=== PATIENT | male | born 1965 | race Caucasian/White ===

== ENCOUNTER → 2017-05-08 | Outpatient (CLI) | payer BC ==
[2017-05-08 21:02] LABS: Basophils # (A) 0.1 k/uL (0-0.2); Basophils % (A) 1 %; CH 29.8; CHCM 32.4; Eosinophils # (A) 0.1 k/uL (0-0.7); Eosinophils % (A) 2 %; HCT 45.7 % (39.0-53.0); HDW 2.19; HGB 14.7 gm/dL (13.0-17.5); Luc # (Auto) 0.21; Luc % (Auto) 3; Lymphocytes # (A) 2.7 k/uL (1.0-4.8); Lymphocytes % (A) 34 %; MCH 29.8 pg (25.0-35.0); MCHC 32.2 g/dL (31.0-37.0); MCV 92.6 fL (80.0-100.0); Mean Platelet Volume 8.1; Monocytes # (A) 0.5 k/uL (0-1.0); Monocytes % (A) 6 %; Neutrophils # (A) 4.3 k/uL (1.3-7.7); Neutrophils % (A) 54 %; RBC 4.93 m/uL (4.30-5.90); RDW 12.7 % (11.5-15.5); WBC 7.8 k/uL (3.8-10.6); WBC (Perox) 7.82
[2017-05-08 21:20] LABS: ALT 205 U/L (21-72); AST 92 U/L (17-59); Alkaline Phosphatase 80 U/L (38-126); Anion Gap 13 mmol/L; Blood Urea Nitrogen 12 mg/dL (9-20); Calcium 10.3 mg/dL (8.4-10.2); Carbon Dioxide 26 mmol/L (22-30); Chloride 100 mmol/L (98-107); Cholesterol 224 mg/dL (<200); Glucose 99 mg/dL (74-99); HDL Cholesterol 88 mg/dL (40-60); Non-African American GFR(MDRD) >60 (>60 ml/min/1.73 sqM); Potassium 5.2 mmol/L (3.5-5.1); Sodium 139 mmol/L (137-145); Total Bilirubin 1.2 mg/dL (0.2-1.3); Total Protein 8.1 g/dL (6.3-8.2); Uric Acid 10.1 mg/dL (3.5-8.5)
== END | disposition home or self-care (01) ==
LOC: MMGSC 16:42
PROVIDERS: ATTEND Family Medicine
DX: Z00.00 Encounter for general adult medical examination without abnormal findings (principal); M10.9 Gout, unspecified; Z12.5 Encounter for screening for malignant neoplasm of prostate
CPT/HCPCS: 84439; 80053; 80061; 84443; 84550; 85025; 36415; G0103

== ENCOUNTER 2020-09-06 08:34 | Day surgery (SDC) | payer BC ==
[2020-09-03 15:55] VITALS: BMI 28.7
--- NOTE | 2020-09-06 07:56 | P.GSHP ---
History of Present Illness H&P Date: 09/06/20 CHIEF COMPLAINT: Colon screen HISTORY OF PRESENT ILLNESS: The patient is a 55-year-old male who presents for colon screen. Lower endoscopy was offered for further evaluation and management. PAST MEDICAL HISTORY: Please see list. PAST SURGICAL HISTORY: Please see list. MEDICATIONS: Please see list. ALLERGIES: Please see list. SOCIAL HISTORY: No illicit drug use FAMILY HISTORY: No reports of Crohn disease or ulcerative colitis. REVIEW OF ORGAN SYSTEMS: CONSTITUTIONAL: No reports of fevers or chills. PHYSICAL EXAM: VITAL SIGNS: Stable GENERAL: Well-developed pleasant in no acute distress. HEENT: No scleral icterus. Extraocular movements grossly intact. Moist buccal mucosa. NECK: Supple without lymphadenopathy. CHEST: Unlabored respirations. Equal bilateral excursions. CARDIOVASCULAR: Regular rate and rhythm. Distal 2+ pulses. ABDOMEN: Soft, nontender, nondistended. MUSCULOSKELETAL: No clubbing, cyanosis, or edema. ASSESSMENT: 1. Colon screen. PLAN: 1. Recommend proceeding with a lower endoscopy Past Medical History Past Medical History: Hypertension Additional Past Medical History / Comment(s): gout History of Any Multi-Drug Resistant Organisms: None Reported Past Surgical History: Appendectomy, Hernia Repair Past Anesthesia/Blood Transfusion Reactions: No Reported Reaction Smoking Status: Former smoker - Past Family History Mother Family Medical History: No Reported History Medications and Allergies Home Medications Medication Instructions Recorded Confirmed Type Allopurinol [Zyloprim] 100 mg PO QAM 09/03/20 09/03/20 History Terazosin [Hytrin] 1 mg PO HS 09/03/20 09/03/20 History Zolpidem [Ambien] 5 - 10 mg PO HS PRN 09/03/20 09/03/20 History Allergies Allergy/AdvReac Type Severity Reaction Status Date / Time No Known Allergies Allergy Verified 09/03/20 15:50
[~2020-09-06 08:34] MED LIST: LACTATED RINGERS 1,000 ML IV SCH
[2020-09-06 09:05] VITALS: TEMP 97.5
[2020-09-06] MEDS ORDERED: LIDOCAINE 1% (10MG/ML) FOR IV START INTRADERMA ONE (09:09)
[2020-09-06] MEDS ORDERED: PROPOFOL 10 MG/ML 20 ML VIAL IV ONE (09:54)
--- NOTE | 2020-09-06 10:16 | P.PCN ---
Date of Procedure: 09/06/20 Description of Procedure: PREOPERATIVE DIAGNOSIS: Colonoscopy screening. POSTOPERATIVE DIAGNOSIS: Colonoscopy screening. Diverticulosis, scattered. OPERATION: Colonoscopy to the cecum, ileocecal valve and appendiceal orifice. SURGEON: Shawanda Alfredo MD. ANESTHESIA: MAC. INDICATIONS: The patient is a 55-year-old male who presents for colonoscopy screening. Benefits and risks were described and informed consent was obtained. DESCRIPTION OF PROCEDURE: The patient had undergone Suprep tabs. The patient had been brought into the operating room and laid in the left lateral decubitus position. After adequate intravenous sedation, the rectum was examined with 2% lidocaine jelly. The prostate was unremarkable. No external hemorrhoids were encountered. The rectal tone was within normal limits. No lesions were palpated in the rectal vault. An Olympus colonoscope was advanced until the cecum, ileocecal valve and appendiceal orifice were clearly viewed. The prep was excellent. Scattered diverticulosis was encountered. No colonic polyps were found. No evidence of focal colitis was found. Retroflexion of the scope demonstrated grade 1 internal hemorrhoids without active bleeding or inflammation. The colon was desufflated. The patient had tolerated the procedure well. Withdrawal time was over 6 minutes. FINDINGS: Aronchick preparation quality scale 1 (1-5) Internal hemorrhoids, grade 1 No external prolapsed hemorrhoids. No arteriovenous malformations. No adenomatous polyps. No focal colitis. RECOMMENDATIONS: Lower endoscopy in 5 years, 2025 Plan - Discharge Summary Discharge Rx Participant: No New Discharge Prescriptions: Continue Zolpidem [Ambien] 5 - 10 mg PO HS PRN PRN Reason: Insomnia Terazosin [Hytrin] 1 mg PO HS Allopurinol [Zyloprim] 100 mg PO QAM Discharge Medication List Allopurinol [Zyloprim] 100 mg PO QAM 09/03/20 [History] Terazosin [Hytrin] 1 mg PO HS 09/03/20 [History] Zolpidem [Ambien] 5 - 10 mg PO HS PRN 09/03/20 [History] Follow up Appointment(s)/Referral(s): Shawanda Alfredo MD [STAFF PHYSICIAN] - 09/11/20 Patient Instructions/Handouts: *[facility]gery [facility] - (Anesthesia) Endoscopy Discharge Instructions, Diverticulosis (DC), Diverticulosis Diet (GEN) Activity/Diet/Wound Care/Special Instructions: Repeat colonoscopy 5 years, 2025 Discharge Disposition: HOME SELF-CARE
[2020-09-06 10:39] VITALS: BP 163/86; PULSE 70; RESP 18
== END 2020-09-06 11:03 | disposition home or self-care (01) ==
LOC: ORWHC2ENDO 08:34
PROVIDERS: ATTEND Surgery Plastic and Reconstructive Surgery
DX: Z12.11 Encounter for screening for malignant neoplasm of colon (principal); K57.30 Diverticulosis of large intestine without perforation or abscess without bleeding; K64.0 First degree hemorrhoids; I10 Essential (primary) hypertension; M10.9 Gout, unspecified; Z87.891 Personal history of nicotine dependence; Z79.899 Other long term (current) drug therapy; Z98.890 Other specified postprocedural states
CPT/HCPCS: J2704; G0121

== ENCOUNTER 2020-10-12 11:33 | Day surgery (SDC) | payer BC ==
[2020-10-10 12:25] VITALS: BMI 29.4
--- NOTE | 2020-10-12 11:06 | P.GSHP ---
History of Present Illness H&P Date: 10/12/20 CHIEF COMPLAINT: Cholecystitis and GERD HISTORY OF PRESENT ILLNESS: The patient is a 55-year-old male who presents with history of epigastric including right upper quadrant abdominal pain. He underwent diagnostic studies for the gallbladder. Separately his clinical picture was consistent with cholecystitis. He also reports severe gastroesophageal reflux disease. Now he presents for surgical intervention. PAST MEDICAL HISTORY: Please see list and reviewed PAST SURGICAL HISTORY: Please see list and reviewed MEDICATIONS: Please see list and reviewed ALLERGIES: Please see list and reviewed SOCIAL HISTORY: Please see list and reviewed FAMILY HISTORY: Please see list and reviewed REVIEW OF ORGAN SYSTEMS: CONSTITUTIONAL: No fevers or chills. No recent weight loss. EYES: Denies any trouble with vision. No glasses. HEENT: No difficulties with hearing. No nosebleeds. No difficulty swallowing. RESPIRATORY: Denies pneumonia. Denies any troubles with breathing or dyspnea on exertion. CARDIOVASCULAR: Denies any chest pain, palpitations, or recent heart attacks. GASTROINTESTINAL: Denies fatty food intolerance. Denies change in bowel habits and gas bloat. Has gastroesophageal reflux disease. GENITOURINARY: Denies any blood in urine. Has increased urinary frequency with outflow obstruction. NEUROLOGICAL: Denies any numbness or tingling along the distal extremities. No seizure disorders or headaches. MUSCULOSKELETAL: Has back pain, stiffness or joint arthritis. Has gout. SKIN: No current skin cancer. No rash. PSYCHIATRIC: Denies current depression or suicidal thoughts. ENDOCRINE: Denies current thyroid disorders. Denies any blood sugar glucose intolerance. HEME/LYMPHATIC: Denies any lumps and bumps around the neck. No recent deep venous thrombosis. ALLERGY/IMMUNOLOGY: No immunoglobulin therapy. No immune deficiencies. BREAST: Denies current breast lumps, pain or nipple discharge. PHYSICAL EXAM: VITAL SIGNS: Afebrile vital signs stable GENERAL: Well-developed pleasant male in no acute distress. HEENT: No scleral icterus. Extraocular movements grossly intact. Moist buccal mucosa. NECK: Supple without lymphadenopathy. CHEST: Unlabored respirations. Equal bilateral excursions. CARDIOVASCULAR: Regular rate regular rhythm rhythm. Distal 2+ pulses. ABDOMEN: Soft, nondistended. Tender along the epigastrium and right upper quadrant. MUSCULOSKELETAL: No clubbing, cyanosis, or edema. NEURO : No focal or lateralizing signs. Cranial nerves II-12 within normal limits. PSYCH: Alert and oriented to person, place and time. SKIN: Well perfused. Good skin turgor. ASSESSMENT: 1. Epigastric and right upper quadrant abdominal pain 2. Chronic cholecystitis 3. Gastroesophageal reflux disease PLAN: 1. Will need a robotic cholecystectomy possible open. Benefits and risks were described. 2. Heparin for DVT prophylaxis 5000 units. 3. Antibiotic prophylaxis. 4. Recommend upper endoscopy for gastroesophageal reflux disease Past Medical History Past Medical History: Hypertension Additional Past Medical History / Comment(s): gout, abdominal pain History of Any Multi-Drug Resistant Organisms: None Reported Past Surgical History: Appendectomy, Hernia Repair Additional Past Surgical History / Comment(s): colonoscopy (09/06/20) Past Anesthesia/Blood Transfusion Reactions: No Reported Reaction Past Psychological History: No Psychological Hx Reported Smoking Status: Former smoker Past Alcohol Use History: Daily, Heavy Additional Past Alcohol Use History / Comment(s): quit smoking September 1994, smoked 1-1 1/2 ppd. Drinks approx 6 beers / daily. Past Drug Use History: None Reported - Past Family History Mother Family Medical History: Unable to Obtain Medications and Allergies Home Medications Medication Instructions Recorded Confirmed Type Allopurinol [Zyloprim] 100 mg PO QAM 09/03/20 10/10/20 History Terazosin [Hytrin] 1 mg PO HS 09/03/20 10/10/20 History Zolpidem [Ambien] 5 - 10 mg PO HS PRN 09/03/20 10/10/20 History Ascorbic Acid [Vitamin C] 1,000 mg PO DAILY 10/10/20 10/10/20 History Cholecalciferol (Vitamin D3) 250 mcg PO DAILY 10/10/20 10/10/20 History [Vitamin D3 (5000 Iu)] Multivit-Min/Folic/Vit K/Lycop 1 each PO DAILY 10/10/20 10/10/20 History [Men's Multivitamin Tablet] Zinc 100 mg PO Q48H 10/10/20 10/10/20 History Allergies Allergy/AdvReac Type Severity Reaction Status Date / Time No Known Allergies Allergy Verified 10/10/20 11:57
[~2020-10-12 11:33] MED LIST changes: +ACETAMINOPHEN TAB 500 MG TAB PO PRN; +DEXAMETHASONE SOD PHOSPHATE 4 MG/ML 1 ML VIAL IV ONE; +GABAPENTIN 300 MG CAP PO PRN; +HEPARIN SODIUM,PORCINE 5,000 UNIT/ML 1 ML VIAL SQ PRN; +INDOCYANINE GREEN 25 MG VIAL IV PRN; +MELOXICAM 7.5 MG TAB PO PRN; +MIDAZOLAM 2 MG/2 ML VIAL IV PRN; +ONDANSETRON 4 MG/2 ML VIAL IVP ONE; +SCOPOLAMINE 1.5MG/72HR PATCH TRANSDERM ONE; +TAMSULOSIN 0.4 MG CAP.ER.24H PO PRN
[2020-10-12] MEDS ORDERED: MIDAZOLAM 2 MG/2 ML VIAL IVP ONE (12:30)
[2020-10-12 13:14] LABS: Basophils # (A) 0.1 k/uL (0-0.2); Basophils % (A) 1 %; Eosinophils # (A) 0.1 k/uL (0-0.7); Eosinophils % (A) 1 %; HCT 42.3 % (39.0-53.0); HGB 14.6 gm/dL (13.0-17.5); Lymphocytes % (A) 22 %; MCH 32.2 pg (25.0-35.0); MCHC 34.6 g/dL (31.0-37.0); MCV 93.3 fL (80.0-100.0); Monocytes # (A) 0.6 k/uL (0-1.0); Monocytes % (A) 6 %; Neutrophils # (A) 6.2 k/uL (1.3-7.7); Neutrophils % (A) 70 %; Platelet Count 296 k/uL (150-450); RBC 4.53 m/uL (4.30-5.90)
[2020-10-12 13:19] LABS: ALT 158 U/L (4-49); AST 118 U/L (17-59); African American GFR (CKD) >90 (>60 ml/min/1.73 sqM); Albumin 5.1 g/dL (3.5-5.0); Alkaline Phosphatase 100 U/L (38-126); Anion Gap 10 mmol/L; Blood Urea Nitrogen 13 mg/dL (9-20); Calcium 10.3 mg/dL (8.4-10.2); Carbon Dioxide 27 mmol/L (22-30); Chloride 102 mmol/L (98-107); Glucose 104 mg/dL (74-99); Non-African American GFR(CKD) >90 (>60 ml/min/1.73 sqM); Potassium 4.1 mmol/L (3.5-5.1); Sodium 139 mmol/L (137-145); Total Bilirubin 1.6 mg/dL (0.2-1.3); Total Protein 8.3 g/dL (6.3-8.2)
[2020-10-12] MEDS ORDERED: NEOSTIGMINE 1 MG/ML 10 ML VIAL ONE (14:39)
[2020-10-12] MEDS ORDERED: fentaNYL (PF) 50 MCG/ML 2 ML AMP ONE (14:39)
[2020-10-12] MEDS ORDERED: KETOROLAC 15 MG/ML 1 ML VIAL ONE (14:39)
[2020-10-12] MEDS ORDERED: MIDAZOLAM 2 MG/2 ML VIAL ONE (14:39)
[2020-10-12] MEDS ORDERED: SUCCINYLCHOLINE CHLORIDE 100 MG/5 ML SYR IV ONE (14:39)
[2020-10-12] MEDS ORDERED: INDOCYANINE GREEN 25 MG VIAL IV ONE (14:39)
[2020-10-12] MEDS ORDERED: ROCURONIUM 10 MG/ML (5 ML VIAL) IV ONE (14:39)
[2020-10-12] MEDS ORDERED: HYDROmorphone (PF) 1 MG/ML ONE (14:39)
[2020-10-12] MEDS ORDERED: PHENYLEPHRINE-0.9% NACL SYG 1,000 MCG/10 ML SYRINGE ONE (14:39)
[2020-10-12] MEDS ORDERED: GLYCOPYRROLATE 0.2 MG/ML 2 ML VIAL ONE (14:39)
[2020-10-12] MEDS ORDERED: PROPOFOL 10 MG/ML 20 ML VIAL IV ONE (14:39)
[2020-10-12] MEDS ORDERED: LIDOCAINE 1% INJ 10MG/ML (20 ML MDV) ONE (14:39)
[2020-10-12] MEDS ORDERED: BUPIVACAIN-EPI 0.5%-1:200,000 30 ML VIAL SQ ONE (14:44)
[2020-10-12] MEDS ORDERED: LACTATED RINGERS 1,000 ML IV ONE (14:59)
[2020-10-12 15:56] VITALS: TEMP 97.2
[2020-10-12] MEDS: HYDROmorphone 0.5 MG/0.5 ML SYRINGE IVP PRN ×2 (15:56→16:02)
--- NOTE | 2020-10-12 16:18 | P.OP ---
Date of Procedure: 10/12/20 Description of Procedure: SURGEON: SHAWANDA ALFREDO MD PREOPERATIVE DIAGNOSES: 1. Symptomatic gallstones 2. Left upper quadrant abdominal pain 3. Hypertensive heart disease 4. Gout 5. Elevated liver enzymes POSTOPERATIVE DIAGNOSES: 1. Symptomatic gallstones 2. Left upper quadrant abdominal pain 3. Hypertensive heart disease 4. Gout 5. Elevated liver enzymes 6. Deep hepatomegaly with fatty liver disease and early cirrhosis OPERATION: Robotic-assisted da Sarah Xi laparoscopic cholecystectomy, multiport with FIREFLY ESTIMATED BLOOD LOSS: 5 mL. SPECIMENS REMOVED: Gallbladder. COMPLICATIONS: None. OPERATIVE FINDINGS: 1. Moderate fatty liver disease with early cirrhosis with hepatomegaly 2. No congenital adhesions along the left upper quadrant INDICATIONS: The patient is a 55-year-old male who presents with symptomatic gallstones. Robotic assisted laparoscopic approach was described. Benefits and risks of the procedure including but not limited to bleeding, infection, injury to the biliary tree was described. Informed consent was obtained. DESCRIPTION OF PROCEDURE: Patient was brought to the operating room, placed in supine position. After general induction, the abdomen had been prepped and draped in standard sterile fashion. The robotic da Sarah XI system was primed. After a timeout protocol was performed, the patient had been prepped and draped in standard sterile fashion. The patient was injected with indocyanine green. A 5 mm 0 degrees laparoscopic trocar entry was performed along the left upper quadrant. The abdomen insufflated to 15 mmHg pressure which was tolerated well. Diagnostic laparoscopy demonstrated no injury to bowel viscera or mesentery. The liver was moderately enlarged with moderate fatty liver disease and early liver cirrhosis. Next, two 8 mm robotic ports were placed along the right upper abdomen. The camera 8-mm port was maintained along the epigastrium. Another 8 mm port was placed along the left upper abdominal wall after exchanging the 5 mm port. Please note that the ports were placed at least 10 to 15 cm away from the target anatomy of the gallbladder. The robot was docked along the left lateral abdomen. The patient was repositioned in reverse Trendelenburg position. Using a grasper for arm 3, a grasper for arm 4, including hook cautery for arm 1, the robotic system was docked and primed as described. Instruments were interchanged by the res habilitation assistant including hook cautery, Bovie cau brook and clip appliers. I had sat at the console. FIREFLY was used to identify the cystic artery and cystic structures. A critical view of safety was obtained. Large PLASTIC clips were used throughout the entire case. Using a clip clinical consultant, 2 clips were placed at the junction of the infundibulum and cystic duct. The cystic duct was divided between clips. Next, the cystic artery was similarly clipped and cauterized. Electro-Bovie cautery was used to remove the gallbladder from the hepatic fossa. Hemostasis was checked and found to be adequate. The robot was undocked. I re-scrubbed into the case. Using a 10 mm Endo Catch bag via the left upper quadrant incision, the specimen was removed from the abdominal cavity. All pneumoperitoneum instruments were evacuated from the abdominal cavity. The incisions were reapproximated using 4-0 Monocryl in an interrupted subcuticular fashion. Fascial defects were less than 8 mm in size. Please note along the trocar sites, local anesthetic was placed as a field block prior to insertion of all instruments. Liquid glue was applied to the skin. At the end of the procedure needle, sponge, and instrument count had been verified correct by the surgical garment fitter. The patient was transferred to postanesthesia care unit in stable condition. Intraoperative films were shared with the patient's family. Plan - Discharge Summary Discharge Rx Participant: No New Discharge Prescriptions: New Simethicone [Gas-X] 125 mg PO AC-TID PRN #20 capsule PRN Reason: Pain Ibuprofen [Motrin] 600 mg PO Q8HR PRN #30 tab PRN Reason: Pain Acetaminophen Tab [Tylenol Tab] 1,000 mg PO Q6HR PRN #30 tablet PRN Reason: Pain Continue Zolpidem [Ambien] 5 - 10 mg PO HS PRN PRN Reason: Insomnia Terazosin [Hytrin] 1 mg PO HS Allopurinol [Zyloprim] 100 mg PO QAM Cholecalciferol (Vitamin D3) [Vitamin D3 (5000 Iu)] 250 mcg PO DAILY Zinc 100 mg PO Q48H Multivit-Min/Folic/Vit K/Lycop [Men's Multivitamin Tablet] 1 each PO DAILY Ascorbic Acid [Vitamin C] 1,000 mg PO DAILY Discharge Medication List Allopurinol [Zyloprim] 100 mg PO QAM 09/03/20 [History] Terazosin [Hytrin] 1 mg PO HS 09/03/20 [History] Zolpidem [Ambien] 5 - 10 mg PO HS PRN 09/03/20 [History] Ascorbic Acid [Vitamin C] 1,000 mg PO DAILY 10/10/20 [History] Cholecalciferol (Vitamin D3) [Vitamin D3 (5000 Iu)] 250 mcg PO DAILY 10/10/20 [History] Multivit-Min/Folic/Vit K/Lycop [Men's Multivitamin Tablet] 1 each PO DAILY 0 10/10/20 [History] Zinc 100 mg PO Q48H 10/10/20 [History] Acetaminophen Tab [Tylenol Tab] 1,000 mg PO Q6HR PRN #30 tablet 10/12/20 [Rx] Ibuprofen [Motrin] 600 mg PO Q8HR PRN #30 tab 10/12/20 [Rx] Simethicone [Gas-X] 125 mg PO AC-TID PRN #20 capsule 10/12/20 [Rx] Follow up Appointment(s)/Referral(s): Shawanda Alfredo MD [STAFF PHYSICIAN] - 10/16/20 (Please call on Thursday morning to confirm time) Patient Instructions/Handouts: Laparoscopic Cholecystectomy (DC), Low Fat Diet (DC), Non-Alcoholic Fatty Liver Disease (DC) Activity/Diet/Wound Care/Special Instructions: No lifting over 10 pounds in 2 weeks until October 26. May shower. No bath tub soaks for two weeks until October 26. Diet as tolerated. No driving while on narcotics. Use Tylenol and ibuprofen or Aleve scheduled for the next 24-48 hours for best pain relief. Use ice along incisions for today to prevent swelling. For today, avoid high fat foods. NO ALCOHOL. Discharge Disposition: HOME SELF-CARE
[2020-10-12] MEDS ORDERED: SIMETHICONE 40 MG/0.6 ML DROPS 2,000 MG/30 ML BOTTLE PO ONE (17:15)
[2020-10-12 17:31] VITALS: BP 152/78; PULSE 90; RESP 20
--- NOTE | 2020-10-12 18:32 | P.PN ---
Progress Note - Text Progress Note Date: 10/12/20 Patient reports having a shy bladder from prior surgeries. He denies any abdominal pain. For urinary retention, options including straight cath now, discharge home with follow-up in his local ER at 12 PM, or placement of Petit catheter were described. Risks of bladder distention described. Patient opted for discharge home. Additional Flomax being sent to his local pharmacy.
== END 2020-10-12 17:32 | disposition home or self-care (01) ==
LOC: OR 11:33
PROVIDERS: ATTEND Surgery Plastic and Reconstructive Surgery
DX: K80.10 Calculus of gallbladder with chronic cholecystitis without obstruction (principal); R33.9 Retention of urine, unspecified; K74.60 Unspecified cirrhosis of liver; K76.0 Fatty (change of) liver, not elsewhere classified; N40.0 Benign prostatic hyperplasia without lower urinary tract symptoms; I11.9 Hypertensive heart disease without heart failure; K21.9 Gastro-esophageal reflux disease without esophagitis; M10.9 Gout, unspecified; R35.0 Frequency of micturition; M54.9 Dorsalgia, unspecified; Z87.891 Personal history of nicotine dependence; Z79.899 Other long term (current) drug therapy; Z90.49 Acquired absence of other specified parts of digestive tract; Z98.890 Other specified postprocedural states
CPT/HCPCS: 47562; S2900; 80053; 85025; 88304; 88305